=== PATIENT | female | born 1985 | race Two or more races ===

== ENCOUNTER 2019-09-07 13:05 | Emergency (ER) | payer BC, OTHER ==
[~2019-09-07] VITALS: Ht 154.9 cm; Wt 54.4 kg
[2019-09-07] MEDS ORDERED: LIDOCAINE HCL 1% LOCAL INJ 20 ML VIAL INJ ONE (13:15)
[2019-09-07] MEDS ORDERED: TETANUS/DIPHTHERIA TOX ADULT 0.5 ML SYR IM ONE (13:15)
[2019-09-07] MEDS ORDERED: LIDOCAINE HCL 1% LOCAL INJ 20 ML VIAL ONE (13:23)
--- NOTE | 2019-09-07 14:05 | Diagnostic Imaging Report ---
Hand Complete CPT code: 01687 Indication:Laceration to fourth digit Technique: Three portable views of the left hand obtained Comparison: None. Findings: Distal radius and ulna appear intact. Carpal bones appear generally well aligned. The digits are intact and normally aligned. No focal osseous lesions. No radiopaque foreign bodies in the soft tissues. IMPRESSION: No evidence for displaced fracture or current dislocation of the hand. Signed by: Dr. Rod Howard MD on 09/07/2019 2:02 PM
[2019-09-07] MEDS ORDERED: BACITRACIN ZINC 0.9GM TP ONE ×2 (15:15→15:17)
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
[2019-09-07 15:19] VITALS: BP 116/77
== END 2019-09-07 15:24 | disposition home or self-care (01) ==
LOC: ER 13:05
DX: S61.412A Laceration without foreign body of left hand, initial encounter (principal); W01.198A Fall on same level from slipping, tripping and stumbling with subsequent striking against other object, initial encounter; Y92.832 Beach as the place of occurrence of the external cause
CPT/HCPCS: 12001; 73130; 90471; 90714; 99283; J2001